=== PATIENT | female | born 1935 | race Caucasian/White ===

== ENCOUNTER 2016-05-22 09:20 | Inpatient (IN) | payer MEDICARE, OTHER ==
--- NOTE | 2016-05-22 10:01 | RAD ---
HISTORY: Neurological changes, stroke like symptoms COMPARISONS: None TECHNIQUE: Multiple contiguous axial CT scans were obtained of the head without intravenous contrast. FINDINGS: HEMORRHAGE/INFARCT: There is no hemorrhage or acute infarct. MASSES/SHIFT: There is no mass or shift. EXTRA-AXIAL SPACES: There are no extra-axial fluid collections. SULCI AND VENTRICLES: The sulci and ventricles are normal in size and position for the patient's stated age. CEREBRUM: There are no focal parenchymal abnormalities. BRAINSTEM: There are no focal parenchymal abnormalities. CEREBELLUM: There are no focal parenchymal abnormalities. VESSELS: The vessels are grossly normal. PARANASAL SINUSES: The paranasal sinuses are clear. ORBITS: The orbits are unremarkable. BONES AND SOFT TISSUE: No bone or soft tissue abnormalities are noted. OTHER: None IMPRESSION: NO ACUTE INTRACRANIAL PATHOLOGY.
[2016-05-22 10:02] LABS: Add Diff/Slide Review? Slide Review Added; Comments Flag Yes; Hematocrit 36 % (35-47); Hemoglobin 11.2 g/dl (12.0-16.0); Mean Corpuscular HGB Conc 31 g/dl (31-36); Mean Corpuscular Hemoglobin 24 pg (27-31); Mean Corpuscular Volume 77 fL (80-97); Mean Platelet Volume 7 um3 (7.4-10.4); Red Blood Count 4.63 10^6/ul (4.0-5.4); Red Cell Distribution Width 23 % (10.5-15); White Blood Count 9.8 10^3/ul (3.5-10.8)
[2016-05-22] MEDS ORDERED: Aspirin SUPP* 300 MG PR ONE (10:16)
[2016-05-22 10:23] LABS: Albumin 3.8 g/dL (3.2-5.2); BUN/Creatinine Ratio 29.2 (8-20); Calcium 9.4 mg/dL (8.6-10.3); EGFR African American 78.3 (>60); EGFR Non-African American 60.9 (>60); Globulin 3.2 g/dL (2-4); HDL Cholesterol 43.2 mg/dL; Potassium 3.9 mmol/L (3.5-5.0); Total Bilirubin 0.6 mg/dL (0.2-1.0)
--- NOTE | 2016-05-22 10:47 | RAD ---
HISTORY: Left-sided weakness COMPARISONS: September 03, 2002 VIEWS:1: Single frontal portable view of the chest at 10:30 AM FINDINGS: LINES AND TUBES: None. CARDIOMEDIASTINAL SILHOUETTE: The cardiac silhouette is enlarged. The cardiomediastinal silhouette is otherwise normal for portable technique. PLEURA: There are small bilateral pleural effusions LUNG PARENCHYMA: There is patchy alveolar opacification lung bases bilaterally. There is a diffuse reticular pattern. There is hyperinflation. ABDOMEN: The upper abdomen is clear. There is no subphrenic gas. BONES AND SOFT TISSUES: No bone or soft tissue abnormalities are noted. IMPRESSION: 1. PULMONARY INTERSTITIAL EDEMA WITH SMALL BILATERAL PLEURAL EFFUSIONS. 2. BIBASILAR ATELECTASIS VERSUS CONSOLIDATION.
--- NOTE | 2016-05-22 10:55 | ED ---
Carlos Wasserman Adam, scribed for Lucius Morris MD on 05/22/16 at 0935 . Neurological HPI - HPI Summary HPI Summary: Pt is an 80 year old female presenting with left-sided weakness. She states that she woke up this morning at 07:00 and fell 3 times. She presents with left- sided facial droop and slurred speech. She seems to have some weakness in her left extremities compared to the right. - History of Current Complaint Chief Complaint: EDSyncope Stated Complaint: STROKE LIKE SYMPTOMS Hx Obtained From: Patient Onset/Duration: Gradual Onset, Started hours ago, Still Present Timing: Constant Onset Severity: Moderate Current Severity: Moderate Neurological Deficit Location: Facial, LUE, LLE Character: Weak - Left side, Impaired Speech Aggravating: Nothing Alleviating: Nothing Associated Signs and Symptoms: Positive: Unsteady Gait, Shortness of Breath - Allergy/Home Medications Allergies/Adverse Reactions: Allergies Allergy/AdvReac Type Severity Reaction Status Date / Time No Known Allergies Allergy Verified 05/22/16 10:16 PMH/Surg Hx/FS Hx/Imm Hx Musculoskeletal History: Reports: Hx Osteoporosis Denies: Hx Rheumatoid Arthritis - Cancer History Hx Chemotherapy: No Hx Radiation Therapy: No - Surgical History Surgery Procedure, Year, and Place: Hysterectomy Infectious Disease History: Denies: Traveled Outside the [place] in Last 30 Days - Family History Known Family History: Positive: Other - Osteoporosis (sister) - Social History Occupation: Retired Lives: Alone Review of Systems Negative: Fever Positive: Shortness Of Breath Neurological: Other - Left side facial droop Positive: Weakness - Left side, Slurred Speech All Other Systems Reviewed And Are Negative: Yes Physical Exam - Summary Physical Exam Summary: VITAL SIGNS: Reviewed. GENERAL: Patient is a well developed and nourished female with a facial droo. and she is lying comfortable in the stretcher. Patient is not in any acute respiratory distress. HEAD AND FACE: No signs of trauma. No ecchymosis, hematomas or skull depressions. EYES: PERRLA, EOMI x 2 EARS: Hearing grossly intact. MOUTH: Oropharynx within normal limits. NECK: Supple, trachea is midline, no adenopathy, no JVD, no carotid bruit CHEST: Symmetric, no tenderness at palpation LUNGS: Clear to auscultation bilaterally. No wheezing or crackles. CVS: irregular rate and rhythm, S1 and S2 present, no murmurs or gallops appreciated. ABDOMEN: Soft, non-tender. No signs of distention. No rebound no guarding, and no masses palpated. Bowel sounds are normal. EXTREMITIES: FROM in all major joints, no edema, no cyanosis or clubbing. NEURO: Alert and oriented x 3. No acute neurological deficits. Speech is normal and follows commands. NIH score 3. SKIN: Dry and warm Triage Information Reviewed: Yes Vital Signs On Initial Exam: Initial Vitals Temp Pulse Resp BP Pulse Ox 98.1 F 84 20 127/70 96 05/22/16 09:22 05/22/16 09:22 05/22/16 09:22 05/22/16 09:22 05/22/16 09:22 Vital Signs Reviewed: Yes Diagnostics - Vital Signs Vital Signs Temp Pulse Resp BP Pulse Ox 05/22/16 09:22 98.1 F 84 20 127/70 96 - Laboratory Lab Results: Lab Results 05/22/16 05/22/16 Range/Units 09:44 09:44 WBC 9.8 (3.5-10.8) 10^3/ul RBC 4.63 (4.0-5.4) 10^6/ul Hgb 11.2 L (12.0-16.0) g/dl Hct 36 (35-47) % MCV 77 L (80-97) fL MCH 24 L (27-31) pg MCHC 31 (31-36) g/dl RDW 23 H (10.5-15) % Plt Count 255 (150-450) 10^3/ul MPV 7 L (7.4-10.4) um3 Neut % (Auto) 83.0 (38-83) % Lymph % (Auto) 7.8 L (25-47) % [place] % (Auto) 6.6 (1-9) % Eos % (Auto) 0.8 (0-6) % Baso % (Auto) 1.8 (0-2) % Absolute Neuts (auto) 8.1 H (1.5-7.7) 10^3/ul Absolute Lymphs (auto) 0.8 L (1.0-4.8) 10^3/ul Absolute Monos (auto) 0.6 (0-0.8) 10^3/ul Absolute Eos (auto) 0.1 (0-0.6) 10^3/ul Absolute Basos (auto) 0.2 (0-0.2) 10^3/ul Absolute Nucleated RBC 0 10^3/ul Nucleated RBC % 0 INR (Anticoag Therapy) 1.06 (0.89-1.11) APTT 25.4 L (26.0-36.3) seconds Result Diagrams: 05/22/16 09:44 05/22/16 09:44 Lab Statement: Any lab studies that have been ordered have been reviewed, and results considered in the medical decision making process. - CT BRAIN CT Interpretation Completed By: Radiologist - IMPRESSION: NO ACUTE INTRACRANIAL PATHOLOGY. - EKG 09:37 Cardiac Rate: NL - 80 BPM EKG Rhythm: Atrial Fibrillation EKG Interpretation: No ST elevations - Additional Comments Diagnostic Additional Comments: Troponin I - 0.00 NIH Scale - NIH Scale Level of Consciousness: Alert/Keenly Responsive Ask Patient the Month and His/Her Age: Both Correct Ask Pt to Open/Close Eyes and Balloon Artist/Release Non-Paretic Hand: Both Correctly Best Gaze (Only Horizontal Eye Movement): Normal Visual Field Testing: No Visual Loss Facial Paresis-Pt to Smile & Close Eyes or Grimace Symmetry: Minor Paralysis Motor Function - Right Arm: No Drift-Holds 10 Seconds Motor Function - Left Arm: No Drift-Holds 10 Seconds Motor Function - Right Leg: No Drift-Holds 10 Seconds Motor Function - Left Leg: No Drift-Holds 10 Seconds Limb Ataxia-Must be out of Proportion to Weakness Present: Absent Sensory (Use Pinprick to Test Arms/Legs/Trunk/Face): Normal Best Language (Describe Picture, Name Items): Some Loss Dysarthria (Read Several Words): Slurs Some Words Extinction and Inattention: No Abnormality Total Score: 3 Course/Dx - Course Assessment/Plan: Pt is an 80 year old female presenting with left-sided weakness. She states that she woke up this morning at 07:00 and fell 3 times. She presents with left-sided facial droop and slurred speech. She seems to have some weakness in her left extremities compared to the right. Patient last time she was in her usual state of mind was last night when she went to sleep. This morning she woke up with symptoms at about 7 AM. She has Hx of A. Fib not in blood thinners. Blood work shows a Hgb 11.2 , Glucose 107. Head CT IMPRESSION : NO ACUTE INTRACRANIAL PATHOLOGY. I discussed the case with Dr. Thakkar and he recommends and Brain MRI w/o contrast. ASA and admit to the hospitalist. MRI results will be follow up By Dr. Thakkar and Dr. Langley. She is hemodynamically stable and she is A+O x 3. I discuss my physical exam, findings and test results with Dr. Langley from the hospitalist services and she agrees to admit patient to his services. Patient is hemodynamically stable alert and oriented x 3. - Differential Dx Differential Diagnoses Neuro: Positive: Cerebrovascular Accident, Seizure Disorder, Transient Ischemic Attack - Diagnoses Provider Diagnoses: Left side weakness r/o CVA Discharge - Discharge Plan Condition: Stable Disposition: ADMITTED TO [facility] The documentation as recorded by the Carlos caraballo Adam accurately reflects the service I personally performed and the decisions made by me, Lucius Morris MD.
[2016-05-22] MEDS ORDERED: traMADol TAB* 50 MG PO PRN (11:44)
[2016-05-22] MEDS ORDERED: NS 0.9% 1000 ML* 1,000 ML IV SCH (11:45)
--- NOTE | 2016-05-22 12:15 | RAD ---
HISTORY: Left-sided weakness COMPARISONS: Head CT dated May 22, 2016 TECHNIQUE: The following sequences were obtained of the head: Sagittal T1-weighted images, axial T2-weighted images, axial FLAIR images, axial susceptibility weighted images, axial T1-weighted images. Additionally, axial diffusion-weighted images were obtained with calculated apparent diffusion coefficients. FINDINGS: HEMORRHAGE/INFARCT: There is no hemorrhage or acute infarct. MASSES/SHIFT: There is no mass or shift. EXTRA-AXIAL SPACES/MENINGES: There are no extra-axial fluid collections. SULCI AND VENTRICLES: The sulci and ventricles are normal in size and position for the patient's stated age. CEREBRUM: There are multiple scattered small foci of elevated T2/FLAIR signal within the periventricular and subcortical white matter. BRAINSTEM: There are no focal parenchymal abnormalities. CEREBELLUM: There are no focal parenchymal abnormalities. The cerebellar tonsils are normal in size and position. SELLA: The sella is normal. PINEAL: The pineal region is clear. CP ANGLE/TEMPORAL BONES: The labyrinthine structures are grossly normal. VESSELS: Normal flow-voids are noted within the visualized vertebral vasculature. DIFFUSION ABNORMALITIES: There are no diffusion abnormalities. PARANASAL SINUSES/MASTOIDS: The paranasal sinuses are clear. ORBITS: The orbits are unremarkable. BONES AND SOFT TISSUE: No bone or soft tissue abnormalities are noted. OTHER: None IMPRESSION: 1. THERE ARE MULTIPLE FOCI OF ELEVATED T2/FLAIR SIGNAL WITHIN THE PERIVENTRICULAR AND SUBCORTICAL WHITE MATTER. WHILE THESE FINDINGS ARE NONSPECIFIC, THEY CAN BE SEEN IN ASSOCIATION WITH MIGRAINE HEADACHE, THE SEQUELA OF PREVIOUS INFECTION OR INFLAMMATION, AND CHRONIC SMALL VESSEL ISCHEMIA. DEMYELINATING DISEASE IS ALSO WITHIN THE DIFFERENTIAL, BUT IS CONSIDERED LESS LIKELY IN THE ABSENCE OF THE APPROPRIATE CLINICAL PRESENTATION. 2. NO RESTRICTED DIFFUSION TO SUGGEST ACUTE INFARCT
[2016-05-22] MEDS: Ferrous Sulfate TAB* 325 MG PO SCH ×2 (13:53→20:55)
[2016-05-22] MEDS: Heparin VIAL(*) 5000 UNITS/ML VIAL (FIVE THOUSAND) SUBCUT SCH ×2 (13:53→20:55)
[2016-05-22] MEDS: Atorvastatin* 10 MG TAB PO SCH (16:28)
--- NOTE | 2016-05-22 20:42 | HP ---
HOSPITAL MEDICINE HISTORY AND PHYSICAL: DATE OF ADMISSION: 05/22/16 PRIMARY CARE PHYSICIAN: Dr. Mitchell. ATTENDING PHYSICIAN: Dr. Lewis Langley *(dictation provided by Keturah Arango NP). CHIEF COMPLAINT: Left-sided weakness and fall. HISTORY OF PRESENT ILLNESS: Ms. Jonas is an 80-year-old female with a past medical history of diagnosis of atrial fibrillation in November 2015. She was started on Xarelto, but then subsequently developed anemia with a hemoglobin of 7.5 Her Xarelto was held and she went on for an upper endoscopy with Dr. Camacho in March of 2016, which failed to show any clear evidence or source of bleeding. It was suspected that likely she had a lower GI bleed, but then colonoscopy was not recommended giving her frail status. In addition to this, she has a diagnosis of hypertension, hyperlipidemia, GERD, and Palafox's esophagus. The patient states she was at home yesterday and she had no issues, it was a beautiful day and she enjoyed being outside somewhat. She was eating and drinking normally. No fevers, no chills. No chest pain, no shortness of breath. No nausea, vomiting, or diarrhea. This morning when she awoke, she immediately knew that something was wrong. She had 3 falls in her attempts to try to take her dog outside for her morning walk. She called her cousin, who came over and noted that she had a left-sided facial droop. She suspected that perhaps she was having a stroke at that point and therefore called EMS to bring her to the hospital. She does not have any clear sense of why she fell. She did not note any left-sided weakness herself. She did appreciate a little bit of slurred speech. She is not complaining of any pain status post these falls. In the emergency room, Ms. Jonas went on for CT of the brain, which showed no acute abnormality. She had lab values, which were remarkable only for an essentially normal hemoglobin of 11.2, our last check back in February had it down to 9.6. Her vitals are stable. Blood pressure is running approximately 129/56. She continues to have left-sided facial droop and very mild left-sided weakness and slurred speech. PAST MEDICAL HISTORY: 1. Atrial fibrillation, off Xarelto due to GI bleed and anemia. 2. History of GI bleed, suspected lower, February 2016. 3. Palafox's esophagus. 4. Hypertension. 5. GERD. 6. Hyperlipidemia. MEDICATIONS: As outpatient are: 1. Diltiazem ER 360 mg p.o. daily. 2. Furosemide 20 mg p.o. daily. 3. Pravastatin 10 mg p.o. daily. 4. Atenolol 50 mg p.o. daily. 5. Ferrous sulfate 325 mg p.o. t.i.d. 6. Omeprazole 20 mg p.o. daily. 7. Tramadol 50 mg p.o. q.6 hours p.r.n. ALLERGIES: No known drug allergies. FAMILY HISTORY: Reviewed and noncontributory. SOCIAL HISTORY: No report of alcohol, tobacco, or drug use. The patient lives alone. She states her daughter is the healthcare proxy and that paperwork was filled out at the bedside today. REVIEW OF SYSTEMS: Constitutional: No fevers, no chills, no unintended weight loss. Cardiac: No chest pain, no edema. Respiratory: No cough, hemoptysis, or shortness of breath. GI: No nausea, vomiting, diarrhea, abdominal pain. No dark tarry stool. : No gross hematuria, dysuria. Neuro: Positive for slurred speech and left-sided facial droop. The patient does not appreciate any other weakness. Eyes: No visual complaints, no headaches, no double vision. ENT: No dysphagia. Musculoskeletal: No arthralgias, myalgias. Skin: No rashes, lesions. Psych: No depression, anxiety. PHYSICAL EXAMINATION GENERAL: Ms. Jonas is lying in the bed. She is in no acute distress. VITAL SIGNS: Temperature 98.1, heart rate 75, respiratory rate 23, O2 saturation 98% on room air, blood pressure 129/56. LUNGS: Clear to auscultation bilaterally with no accessory muscle use and good aeration. HEART: S1, S2. No murmur, rub, or gallop and regular. ABDOMEN: Soft and nontender with bowel sounds positive x4. EXTREMITIES: No cyanosis or edema. NEURO: She is alert and oriented x3. She has a very mild pronator drift on the left, though she is not able to lift well at the shoulder joint due to pain with recent collar bone fracture. She has about +4 to 5 strength on the lower extremities with weakness noted on the left, which is mild. She has a left- sided facial droop. She has mild slurred speech. Her pupils are equal and reactive. Extraocular movements are intact. SKIN: Intact. DIAGNOSTIC STUDIES/LAB DATA: Sodium 137, potassium 3.9, chloride 105, serum bicarbonate 25, BUN 26, creatinine 0.89, glucose 107, lactic acid 1.3. Troponin 0.00. Lipids: Triglycerides 54, cholesterol 141, LDL 87, HDL 43.2. WBC 9.8, hemoglobin 11.2, hematocrit 36, platelet count 255. INR 1.06. CT brain shows no acute intracranial pathology. Chest x-ray shows pulmonary interstitial edema with small bilateral pleural effusions, bibasilar atelectasis versus consolidation. Brain MRI has now been read as follows: "There are multiple foci of elevated T2 /FLAIR signal within the periventricular and subcortical white matter, while these findings are nonspecific, they can be seen in association with migraine headache as a sequelae of previous infection or inflammation and chronic small- vessel ischemia. Demyelinating disease is also within the differential, but it is considered less likely in the absence of the appropriate clinical presentation. No restrictive diffusion to suggest acute infarct." EKG shows atrial fibrillation with a heart rate of 80. ASSESSMENT AND PLAN: Ms. Jonas is an 80-year-old female with past medical history of atrial fibrillation, now off Xarelto secondary to suspected lower gastrointestinal bleed with anemia and hemoglobin of 7.5 earlier this year as well as hypertension, hyperlipidemia, who presents today to the hospital with concern for multiple falls, left-sided weakness, and left-sided facial droop with slurred speech and concern for a cerebrovascular accident. Our plans are for observation in the hospital for the followin. Left-sided weakness with slurred speech: Again, I have a high suspicion for cerebrovascular accident; however, an MRI of the brain has been obtained and has just now been read. It failed to show any restricted diffusion, but does show these elevated FLAIR signal. Neurology has been consulted and I will look closely for their interpretation of this report and recommendations overall. For now, continue plan of care related to cerebrovascular accident. The patient has had an echocardiogram within the past week at Dr. Acosta's office; I am requesting those records. She has also reportedly had a carotid ultrasound late last year; I am requesting those records from [place]. The patient has had an aspirin in the emergency room. Her lipid profile is appropriate. I will continue her low-dose statin. Her blood pressure is a little on the lower side. I had plan to give her intravenous fluids but based on her pulmonary edema noted on her chest x-ray, I think it is prudent to hold off on those for now. I am also going to continue her Lasix, but I will decrease her atenolol in an effort to improve blood pressure and promote brain perfusion. She will be monitored on telemetry unit and she will have neuro checks, PT and OT, and ST will be evaluating. If the patient is determined to have stroke, it is likely related to atrial fibrillation; however, stroke diagnosis is certainly in question at this point. The patient will need consideration for possible colonoscopy before any initiation of anticoagulation given her recent bleed. I think at this point that the risks of anticoagulation outweigh the benefits, but we will await input from Dr. Thakkar and we will also consult Gastroenterology. 2. Hypertension: Continue lower dose atenolol. Plan to hold Cardizem in the short term given her blood pressure is a little on the lower side in the setting of a possible acute stroke. Also, we will continue furosemide. 3. Pulmonary edema: This was noted on chest x-ray; however, the patient is not hypoxic, breathing easily on room air. Plan to continue furosemide. 4. DVT prophylaxis: Heparin subcu. 5. Disposition: To telemetry floor. 6. Code status is DNR/DNI and the MOLST form was completed with her and the family. TIME SPENT: Approximately 75 minutes was spent on the admission of this patient , more than half time spent with her and her family at the bedside performing the physical examination and reviewing the plan of care. KETURAH ARANGO NP CC: Dr. Mitchell* [id number]/[facility] #: [id number] JESSICA
--- NOTE | 2016-05-22 21:23 | CONS ---
CONSULTATION REPORT: DATE OF CONSULT: 05/22/16 PATIENT OF: Keturah Arango NP HISTORY OF PRESENT ILLNESS: This is an 80-year-old right-handed woman who had a left-sided weakness upon waking up. She has had no prior stroke or TIA. When she woke up at 7, she fell several times and her left side felt weak to her. She had slight slurred speech. Things have improved according to her family and her over the course of the morning, but still she has symptoms. PAST MEDICAL HISTORY: She has a history of osteoporosis. She is status post hysterectomy, but no other surgeries. She has hyperlipidemia, hypertension. She is also status post a hysterectomy. She has had atrial fibrillation and has had been on Xarelto with significant GI bleeding without the source noted. SOCIAL HISTORY: She is a former smoker quitting in 2000. REVIEW OF SYSTEMS: Negative in all 14 spheres other than the HPI. PHYSICAL EXAM: Temperature 98, pulse 60, respirations 20, blood pressure 120/ 69. She is alert and oriented with no aphasia and fluent speech. I did not detect any slurred speech. She did have a left facial droop, which is new. Rest of cranial nerves II through XII were intact. She had mild pronator drift and 5-/5 strength in the left arm and leg. Strength and tone on the right were normal with strength being 5/5. Reflexes 1 and equal. Toes were downgoing. Chest: Clear. Cardiovascular: Irregular rate and rhythm. Abdomen: Soft with positive bowel sounds. DIAGNOSTIC STUDIES/LAB DATA: I reviewed her MRI scan, which showed some small vessel ischemic disease. There was a possible air in the right anterior insula. Labs include white count of 9.8, hematocrit 36, platelets 255. INR 1.06. PTT 25.4. LDL is 87. Normal CMP except for BUN of 26. 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 It would be presumed to be due to a small embolic stroke although it is possible that this could be a hypertensive small lacunar stroke. It is hard to be sure. It is possible the abnormality in her anterior insula is related to her symptoms. I had called Dr. Butcher when I had seen this to review the MRI scan with him. In any event, after a couple days' time, it would make sense to repeat a CAT scan and then go on anticoagulation unless the risks of falling and GI bleeding are too high that it would preclude this, but the stroke would be a strong indication to treat her atrial fibrillation. She had an echocardiogram done a couple weeks ago with bubble study that is being obtained by the nursing. I have spoken to Keturah Arango NP, about this case and she should be on aspirin until she goes on her anticoagulation. [id number]/[facility] #: [id number] MTDBertha
--- NOTE | 2016-05-23 00:08 | CONS ---
GASTROENTEROLOGY CONSULTATION DATE OF CONSULT: 05/22/16 CONSULTING PHYSICIANS: Milton Mitchell; Odette Ford DO. REASON FOR CONSULTATION: Right hemispheric neurologic signs developing today in a woman with history of atrial fibrillation and iron deficiency anemia. HISTORY: This 80-year-old woman today fell as she was getting up to let her dog out. It happened a second time and then a third time outside. She called an ambulance and was brought to the ER where she had a left facial droop and left arm weakness. She is able to bear weight. She was diagnosed with atrial fibrillation last fall and after hospitalization at [facility] was placed on Xarelto. She fairly rapidly developed iron deficiency anemia pattern with an MCV down in the 70s. She was taken off Xarelto. 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 She was on omeprazole 20 and not on any anticoagulant at that time. She was taking 3 iron sulfate tablets and was completely impacted with the rectum full of black stool. 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 Currently, she is on a general diet and says her appetite is okay with no change in her weight. Taking now 1 iron tablet a day. her bowels are fine and she does not need any laxatives. Her CBC today on admission was substantially better with a hemoglobin of 11.2, hematocrit 36, and MCV 77. BUN 26, creatinine 0.89. LFTs normal. Albumin 3.8. PAST MEDICAL HISTORY: 1. Atrial fibrillation - fall 2015. 2. History of poor balance and falls - she fell and broke her collar bone last year. 3. Status post hysterectomy. 4. Hiatal hernia and GERD - on omeprazole 20 mg over 10 years. 5. Hypothyroidism. SOCIAL HISTORY: She lives alone with her daughter living about a [place] drive away. She has a dog she is devoted to. REVIEW OF SYSTEMS: No history of inflammatory arthritis, TB, hemoptysis, hepatitis, jaundice, WI, overt palpitations, syncope, renal stones, hip fracture or emergency room visits in the last several years. She was actually in the emergency room in 2004 for a fall. EXAM: She is a slender elderly woman, alert, oriented with a left facial droop. She has left arm weakness. She has no adenopathy. The lungs are clear and heart sounds are irregular, but crisp. Rest of the pelvic exam is deferred. The abdomen is flat with normal bowel sounds, quite soft, and unremarkable. Perianal inspection is normal. Rectal reveals soft, brown stool submitted for Hemoccult. A specimen earlier in the day was negative. Extremities showed no edema. LABORATORY DATA: Today 9:44 a.m., hemoglobin 11.2, hematocrit 36, MCV 77; up from hemoglobin 9.6 and MCV 73 on 03/08/16. LFTs are normal. Albumin 3.8. Vitamin B12 in February was 535. SPEECH [facility] THERAPIST IMAGING: CT and MRI both show multifocal low-grade changes compatible with ischemia, but no major hemorrhage. IMPRESSION: A woman with an acute left hemiplegia in the background of atrial fibrillation. She will need to be anticoagulated and that decision is more comfortable as she is heme negative today. She had upper endoscopy a couple of months ago. The information from a colonoscopy would be of interest and logical , but her ability to take the prep is certainly in question now with the acute presentation and almost regardless of the findings, no action will be taken as one would not wish to interrupt the anticoagulation. Thus, would forgo a colonoscopy at the moment and just track her Hemoccults closely and replete iron as needed. Down the road, a colonoscopy might be elected, but preparation for it will be difficult. She had resisted having any workup at all through the latter half of 2015 and with her history of falls and living alone, the barriers to safe performance of this remain. [id number]/[facility] #: [id number] MTDD
[2016-05-23] MEDS: Heparin VIAL(*) 5000 UNITS/ML VIAL (FIVE THOUSAND) SUBCUT SCH ×3 (05:31→21:11)
[2016-05-23] MEDS: Furosemide TAB* 20 MG PO SCH (05:31)
[2016-05-23 06:10] LABS: Urine Bacteria Absent (Absent); Urine Bilirubin Negative (Negative); Urine Glucose Negative (Negative); Urine Nitrite Negative (Negative)
[2016-05-23] MEDS: Ferrous Sulfate TAB* 325 MG PO SCH ×3 (08:07→21:11)
[2016-05-23] MEDS: Aspirin TAB* 325 MG PO SCH (08:07)
[2016-05-23] MEDS: Omeprazole CAP* 20 MG PO SCH (08:07)
[2016-05-23] MEDS: Atenolol TAB* 25 MG PO SCH (08:07)
--- NOTE | 2016-05-23 08:51 | PN ---
Subjective Date of Service: 05/23/16 Interval History: Patient reports she is much better today reporting her left sided weakness is almost resolved. Denies MELISSA or vision changes. Denies numbness/tingling/weakness Discussed anticoagulation with pt and daughter and they are leaning towards coumadin. No falls at home prior to this acute episode. Objective Active Medications: Aspirin (Aspirin Tab*) 325 mg PO DAILY [facility] Last Admin: 05/23/16 08:07 Dose: 325 mg Atenolol (Tenormin Tab*) 25 mg PO DAILY [facility] Last Admin: 05/23/16 08:07 Dose: 25 mg Atorvastatin Calcium (Lipitor*) 10 mg PO 1700 [facility] Last Admin: 05/22/16 16:28 Dose: 10 mg Ferrous Sulfate (Ferrous Sulfate Tab*) 325 mg PO TID [facility] Last Admin: 05/23/16 08:07 Dose: 325 mg Furosemide (Lasix Tab*) 20 mg PO 0600 [facility] Last Admin: 05/23/16 05:31 Dose: 20 mg Heparin Sodium (Porcine) (Heparin Vial(*)) 5,000 units SUBCUT Q8HR [facility] Last Admin: 05/23/16 05:31 Dose: 5,000 units Omeprazole (Prilosec Cap*) 20 mg PO DAILY [facility] Last Admin: 05/23/16 08:07 Dose: 20 mg Tramadol HCl (Ultram*) 50 mg PO Q6HR PRN PRN Reason: PAIN Last Admin: 05/23/16 08:07 Dose: 50 mg Vital Signs 05/22/16 05/22/16 05/22/16 19:42 20:00 23:57 Temperature 97.5 F 98.6 F Pulse Rate 109 103 Respiratory 17 17 28 Rate Blood Pressure 127/57 125/56 (mmHg) O2 Sat by Pulse 90 90 89 Oximetry 05/23/16 05/23/16 05/23/16 00:17 03:36 07:59 Temperature 98.2 F 97.7 F Pulse Rate 86 98 71 Respiratory 27 20 18 Rate Blood Pressure 122/57 128/54 (mmHg) O2 Sat by Pulse 92 91 94 Oximetry 05/23/16 08:07 Temperature Pulse Rate Respiratory 20 Rate Blood Pressure (mmHg) O2 Sat by Pulse Oximetry Oxygen Devices in Use Now: Nasal Cannula - 2L NC Appearance: 80 yo female sitting on the side of her bed in NAD A+O x3. Daughter at bedside Eyes: No Scleral Icterus, PERRLA Ears/Nose/Mouth/Throat: NL Teeth, Lips, Gums, Mucous Membranes Moist Neck: NL Appearance and Movements; NL JVP Respiratory: Symmetrical Chest Expansion and Respiratory Effort, Clear to Auscultation Cardiovascular: NL Sounds; No Murmurs; No JVD, RRR, - - 1+ LE edema b/l Abdominal: NL Sounds; No Tenderness; No Distention Extremities: No Clubbing, Cyanosis Skin: No Rash or Ulcers, No Nodules or Sclerosis Neurological: Alert and Oriented x 3, NL Sensation, NL Muscle Strength and Tone Lines/Tubes/Other Access: Clean, Dry and Intact Peripheral IV Nutrition: Taking PO's Result Diagrams: 05/22/16 09:44 05/22/16 09:44 Additional Lab and Data: Lab Results 05/22/16 05/22/16 Range/Units 09:44 09:44 WBC 9.8 (3.5-10.8) 10^3/ul RBC 4.63 (4.0-5.4) 10^6/ul Hgb 11.2 L (12.0-16.0) g/dl Hct 36 (35-47) % MCV 77 L (80-97) fL MCH 24 L (27-31) pg MCHC 31 (31-36) g/dl RDW 23 H (10.5-15) % Plt Count 255 (150-450) 10^3/ul MPV 7 L (7.4-10.4) um3 Neut % (Auto) 83.0 (38-83) % Lymph % (Auto) 7.8 L (25-47) % [place] % (Auto) 6.6 (1-9) % Eos % (Auto) 0.8 (0-6) % Baso % (Auto) 1.8 (0-2) % Absolute Neuts (auto) 8.1 H (1.5-7.7) 10^3/ul Absolute Lymphs (auto) 0.8 L (1.0-4.8) 10^3/ul Absolute Monos (auto) 0.6 (0-0.8) 10^3/ul Absolute Eos (auto) 0.1 (0-0.6) 10^3/ul Absolute Basos (auto) 0.2 (0-0.2) 10^3/ul Absolute Nucleated RBC 0 10^3/ul Nucleated RBC % 0 INR (Anticoag Therapy) 1.06 (0.89-1.11) APTT 25.4 L (26.0-36.3) seconds Assess/Plan/Problems-Billing Assessment: 80 yo female with hx of afib dx in November 2015, she was started on xarelto at that time but subsequently developed anemia with Hgb 7.5 and her xarelto was discontinued, she underwent endoscopy which failed to show any clear evidence of bleed, it was suspected she had a lower GI bleed but no colonoscopy was recommended due to her frail state, now returns with left-sided weakness and fall found to have a CVA. - Patient Problems (1) CVA (cerebral vascular accident) Comment: - acute CVA - Appreciate Neuro consult, Dr. Thakkar. Presented with left hemiparesis, greatly improved over the past 24 hours. MRI showing acute CVA, Possible small cardioembolic CVA in the setting of afib or possible lacunar stroke. Recommends repeat CT tomorrow and if negative for bleed start anticoagulation. - Per GI ok to start anticog from GI standpoint with tracking her hemoccults. - continue statin, ASA - PT/OT - reassess ambulation and stability tomorrow. May need subacute (2) History of GI bleed Comment: 2016 -started on xarelto at that time but subsequently developed anemia with Hgb 7.5 and her xarelto was discontinued, she underwent endoscopy which failed to show any clear evidence of bleed, it was suspected she had a lower GI bleed but no colonoscopy was recommended due to her frail state - heme negative x2 (3) HTN (hypertension) Comment: normotensive on home atenolol (4) GERD (gastroesophageal reflux disease) Comment: asymptomatic. continue PPI (5) DVT prophylaxis Comment: HSQ (6) Full code status Status and Disposition: inpatient with CVA.
[2016-05-23] MEDS ORDERED: Atenolol TAB* 50 MG PO SCH (09:00)
[2016-05-23] MEDS: Atorvastatin* 10 MG TAB PO SCH (16:46)
[2016-05-24] MEDS: Furosemide TAB* 20 MG PO SCH (05:51)
[2016-05-24] MEDS: Heparin VIAL(*) 5000 UNITS/ML VIAL (FIVE THOUSAND) SUBCUT SCH ×2 (05:51→12:58)
[2016-05-24 06:25] LABS: Hematocrit 34 % (35-47); Hemoglobin 10.8 g/dl (12.0-16.0); Mean Corpuscular HGB Conc 32 g/dl (31-36); Mean Corpuscular Hemoglobin 25 pg (27-31); Mean Corpuscular Volume 78 fL (80-97); Mean Platelet Volume 9 um3 (7.4-10.4); Red Blood Count 4.38 10^6/ul (4.0-5.4); Red Cell Distribution Width 22 % (10.5-15)
[2016-05-24 06:30] LABS: Comments Flag Yes
[2016-05-24 06:40] LABS: BUN/Creatinine Ratio 27.8 (8-20); Calcium 8.9 mg/dL (8.6-10.3); EGFR African American 89.8 (>60); EGFR Non-African American 69.8 (>60); Potassium 3.7 mmol/L (3.5-5.0)
--- NOTE | 2016-05-24 09:22 | RAD ---
INDICATION: CVA COMPARISON: CT brain May 22, 2016; MRI brain May 22, 2016 TECHNIQUE: Noncontrast axial source images were acquired from the skull base to the vertex. FINDINGS: Ventricles/sulci: The ventricles and cisterns are normal in size and configuration for age. Brain parenchyma: There is no focal parenchymal finding, evidence of intracranial mass, or intracranial mass effect. Intracranial hemorrhage:None. Extra-axial spaces: There are no abnormal extra axial fluid collections or evidence of extra-axial mass. Calvarium: There is no calvarial fracture or other calvarial abnormality. Scalp: There is no evidence of scalp or extracalvarial soft tissue abnormality. Paranasal sinuses/mastoid: The paranasal sinuses and mastoid air cells are clear. Other: None. IMPRESSION: No acute intracranial findings or interval changes.
[2016-05-24] MEDS: Aspirin TAB* 325 MG PO SCH (10:12)
[2016-05-24] MEDS: Ferrous Sulfate TAB* 325 MG PO SCH ×3 (10:13→20:57)
[2016-05-24] MEDS: Atenolol TAB* 25 MG PO SCH (10:13)
[2016-05-24] MEDS: Omeprazole CAP* 20 MG PO SCH (10:13)
--- NOTE | 2016-05-24 12:43 | PN ---
FOLLOWUP REPORT: DATE OF SERVICE: DATE OF DICTATION: 05/23/16 PATIENT OF: Pati Morin NP HISTORY: Federica feels better and notes no left-sided weakness at this point. No headache or visual changes. No numbness or tingling. MEDICATIONS: Include: 1. Aspirin. 2. Lipitor. 3. Her blood pressure medicines. PHYSICAL EXAMINATION: Temperature 97.2, pulse 89, respirations 17, blood pressure 108/53. She is alert and oriented with normal speech and comprehension. Cranial nerves II through XII are intact. Motor exam revealed normal tone and strength. There was no pronator drift today. Chest: Clear. Cardiovascular: Regular rate and rhythm. Abdomen: Soft with positive bowel sounds. LABORATORY DATA: Her LDL was 87 and she is on a statin. IMPRESSION: Discussed with Federica, her family, and Pati Morin NP, that she has had a small stroke with good clinical resolution at this point. Given her atrial fibrillation, it would make sense to anticoagulate. If her CT scan tomorrow shows no bleeding into an area of stroke, then I would begin at this point. If she had had a larger stroke, I would wait longer, but at this point given her clinical resolution and the lack of evidence of significant area of her brain being affected by ischemia, I would begin the anticoagulation sooner rather than later. I have discussed the pros and cons of this with the family. [id number]/[facility] #: [id number] MTDBertha
[2016-05-24] MEDS ORDERED: Metoprolol Tartrate IV* 1 MG/ML 5 ML VIAL IV ONE ×2 (13:30→21:59)
[2016-05-24] MEDS ORDERED: Diltiazem TAB* 30 MG PO SCH ×2 (14:00→17:00)
[2016-05-24] MEDS ORDERED: Digoxin IV* 0.5 MG/2 ML AMP (0.25 MG/ML) IV SLOW PU ONE (14:05)
--- NOTE | 2016-05-24 14:09 | PN ---
Subjective Date of Service: 05/24/16 Interval History: patient reports she feels better today stating she feels steady on her feet. Denies SOB, palpitations or CP. No dizziness. Denies weakness or tingling. Does reports she has a cough and rhinorrhea stating she thinks she "has a cold". Occasional clear - white sputum production. Denies fever or chills. reports good appetite. Objective Active Medications: Aspirin (Aspirin Tab*) 325 mg PO DAILY [facility] Last Admin: 05/24/16 10:12 Dose: 325 mg Atenolol (Tenormin Tab*) 25 mg PO BID [facility] Atorvastatin Calcium (Lipitor*) 10 mg PO 1700 [facility] Last Admin: 05/23/16 16:46 Dose: 10 mg Ferrous Sulfate (Ferrous Sulfate Tab*) 325 mg PO TID [facility] Last Admin: 05/24/16 12:58 Dose: 325 mg Furosemide (Lasix Tab*) 20 mg PO 0600 [facility] Last Admin: 05/24/16 05:51 Dose: 20 mg Heparin Sodium (Porcine) (Heparin Vial(*)) 5,000 units SUBCUT Q8HR [facility] Last Admin: 05/24/16 12:58 Dose: 5,000 units Omeprazole (Prilosec Cap*) 20 mg PO DAILY [facility] Last Admin: 05/24/16 10:13 Dose: 20 mg Tramadol HCl (Ultram*) 50 mg PO Q6HR PRN PRN Reason: PAIN Last Admin: 05/23/16 08:07 Dose: 50 mg Warfarin Sodium (Coumadin Tab(*)) 5 mg PO DAILY@1700 [facility] PRN Reason: Protocol Vital Signs 05/23/16 05/23/16 05/23/16 15:17 19:18 20:00 Temperature 97.2 F 97.4 F Pulse Rate 89 116 Respiratory 17 19 19 Rate Blood Pressure 108/53 109/60 (mmHg) O2 Sat by Pulse 100 96 96 Oximetry 05/24/16 05/24/16 05/24/16 00:08 04:27 07:49 Temperature 98.1 F 98.5 F 97.7 F Pulse Rate 112 88 113 Respiratory 16 16 18 Rate Blood Pressure 125/84 139/69 131/66 (mmHg) O2 Sat by Pulse 91 91 96 Oximetry 05/24/16 11:44 Temperature 98.0 F Pulse Rate 118 Respiratory 16 Rate Blood Pressure 118/52 (mmHg) O2 Sat by Pulse 97 Oximetry Oxygen Devices in Use Now: Nasal Cannula - 2L NC Appearance: A+O x3 80 yo female sitting up in bed in NAD. Eyes: No Scleral Icterus, PERRLA Ears/Nose/Mouth/Throat: NL Teeth, Lips, Gums, Mucous Membranes Moist Neck: NL Appearance and Movements; NL JVP Respiratory: Symmetrical Chest Expansion and Respiratory Effort, Clear to Auscultation Cardiovascular: No Edema, - - irregulary irregular, tachycardic Abdominal: NL Sounds; No Tenderness; No Distention, No Hepatosplenomegaly Extremities: No Edema, No Clubbing, Cyanosis Skin: No Rash or Ulcers, No Nodules or Sclerosis Neurological: Alert and Oriented x 3, NL Sensation, NL Muscle Strength and Tone Lines/Tubes/Other Access: Clean, Dry and Intact Peripheral IV Nutrition: Taking PO's Result Diagrams: 05/24/16 05:13 05/24/16 05:13 Additional Lab and Data: Lab Results 05/22/16 05/22/16 Range/Units 09:44 09:44 WBC 9.8 (3.5-10.8) 10^3/ul RBC 4.63 (4.0-5.4) 10^6/ul Hgb 11.2 L (12.0-16.0) g/dl Hct 36 (35-47) % MCV 77 L (80-97) fL MCH 24 L (27-31) pg MCHC 31 (31-36) g/dl RDW 23 H (10.5-15) % Plt Count 255 (150-450) 10^3/ul MPV 7 L (7.4-10.4) um3 Neut % (Auto) 83.0 (38-83) % Lymph % (Auto) 7.8 L (25-47) % [place] % (Auto) 6.6 (1-9) % Eos % (Auto) 0.8 (0-6) % Baso % (Auto) 1.8 (0-2) % Absolute Neuts (auto) 8.1 H (1.5-7.7) 10^3/ul Absolute Lymphs (auto) 0.8 L (1.0-4.8) 10^3/ul Absolute Monos (auto) 0.6 (0-0.8) 10^3/ul Absolute Eos (auto) 0.1 (0-0.6) 10^3/ul Absolute Basos (auto) 0.2 (0-0.2) 10^3/ul Absolute Nucleated RBC 0 10^3/ul Nucleated RBC % 0 INR (Anticoag Therapy) 1.06 (0.89-1.11) APTT 25.4 L (26.0-36.3) seconds Assess/Plan/Problems-Billing Assessment: 80 yo female with hx of afib dx in November 2015, she was started on xarelto at that time but subsequently developed anemia with Hgb 7.5 and her xarelto was discontinued, she underwent endoscopy which failed to show any clear evidence of bleed, it was suspected she had a lower GI bleed but no colonoscopy was recommended due to her frail state, now returns with left-sided weakness and fall found to have a CVA. - Patient Problems (1) CVA (cerebral vascular accident) Comment: - acute CVA - Appreciate Neuro consult, Dr. Thakkar. Presented with left hemiparesis, greatly improved over the past 48 hours. MRI showing acute CVA, Possible small cardioembolic CVA in the setting of afib or possible lacunar stroke. Repeat CT today negative for bleeding, ok to start anticoagulation per neuro. DC ASA. Lovenox to coumadin bridge. - Per GI ok to start anticog from GI standpoint with tracking her hemoccults. - continue statin - PT/OT (2) Afib Comment: - uncontrolled today. BB decreased on admssion and cardizem was held 2nd to CVA and allowing for permissive HTN, now HR 110-130's. Pt is asymptomatic. Digoxin given (due to soft Bps) w/o much effect. Plan to start cardizem 30 mg po Q6hr then switch to long acting home dose. Will increase BB back to home dose. (3) CHF (congestive heart failure) Comment: - Chest xray on admission showing "pulmonary interstial edema with bilateral pleural effusions. Bibasilar atelectasis vs consolidation". Suspect this is CHF and not pneumonia. - Recent echo at Dr. Randallitic this past week; obtaining TTE report - repeat chest xray continues to require oxygen - continue lasix (4) History of GI bleed Comment: 2016 -started on xarelto at that time but subsequently developed anemia with Hgb 7.5 and her xarelto was discontinued, she underwent endoscopy which failed to show any clear evidence of bleed, it was suspected she had a lower GI bleed but no colonoscopy was recommended due to her frail state - heme negative x2 (5) HTN (hypertension) Comment: continue atenolol, restart cardizem. (6) GERD (gastroesophageal reflux disease) Comment: asymptomatic. continue PPI (7) DVT prophylaxis Comment: HSQ (8) Full code status Status and Disposition: inpatient with CVA. Plan for patient to go home, daughter plans to move in with her mom.
[2016-05-24] MEDS ORDERED: Digoxin TAB* 0.25 MG PO ONE (14:32)
[2016-05-24] MEDS: Enoxaparin(*) 60 MG/0.6 ML SYR SUBCUT SCH (17:39)
[2016-05-24] MEDS: Warfarin TAB(*) 5 MG PO SCH (17:43)
[2016-05-24] MEDS: Atorvastatin* 10 MG TAB PO SCH (17:44)
[2016-05-24] MEDS: Diltiazem TAB* 30 MG PO SCH (18:06)
[2016-05-24] MEDS ORDERED: Atenolol TAB* 25 MG PO SCH (21:00)
[2016-05-25] MEDS: Diltiazem TAB* 30 MG PO SCH ×2 (00:03→05:38)
[2016-05-25] MEDS: Enoxaparin(*) 60 MG/0.6 ML SYR SUBCUT SCH ×2 (05:35→17:19)
[2016-05-25 05:49] LABS: Hematocrit 37 % (35-47); Hemoglobin 11.6 g/dl (12.0-16.0); Mean Corpuscular HGB Conc 32 g/dl (31-36); Mean Corpuscular Hemoglobin 25 pg (27-31); Mean Corpuscular Volume 77 fL (80-97); Mean Platelet Volume 8 um3 (7.4-10.4); Red Blood Count 4.74 10^6/ul (4.0-5.4); Red Cell Distribution Width 22 % (10.5-15); White Blood Count 9.7 10^3/ul (3.5-10.8)
[2016-05-25 06:09] LABS: BUN/Creatinine Ratio 30.9 (8-20); Calcium 8.9 mg/dL (8.6-10.3); EGFR African American 87.3 (>60); EGFR Non-African American 67.9 (>60)
[2016-05-25] MEDS ORDERED: Diltiazem CD CAP* 240 MG PO ONE (08:27)
[2016-05-25] MEDS: Omeprazole CAP* 20 MG PO SCH (08:58)
[2016-05-25] MEDS: Atenolol TAB* 50 MG PO SCH (08:58)
[2016-05-25] MEDS: Ferrous Sulfate TAB* 325 MG PO SCH ×3 (08:58→20:12)
[2016-05-25] MEDS ORDERED: Aspirin EC Low Dose* 81 MG TAB.EC PO SCH (09:00)
--- NOTE | 2016-05-25 15:19 | RAD ---
HISTORY: Hypoxia COMPARISONS: May 22, 2016 VIEWS: 2: Frontal dual-energy and lateral views of the chest. FINDINGS: CARDIOMEDIASTINAL SILHOUETTE: The cardiomediastinal silhouette is normal. BEST: There is enlargement of the central pulmonary vasculature. PLEURA: There are small bilateral pleural effusions. LUNG PARENCHYMA: There is hyperinflation with flattening of the diaphragm and expansion of the AP diameter of the chest. ABDOMEN: The upper abdomen is clear. There is no subphrenic gas. BONES AND SOFT TISSUES: There is diffuse osteopenia. Degenerative changes are noted of the spine OTHER: None. IMPRESSION: 1. HYPERINFLATION, CONSISTENT WITH COPD. 2. SMALL BILATERAL PLEURAL EFFUSIONS.
[2016-05-25] MEDS ORDERED: Furosemide IV* 10 MG/ML 10 ML VIAL (100 MG) IV ONE (16:20)
--- NOTE | 2016-05-25 16:24 | PN ---
Subjective Date of Service: 05/25/16 Interval History: Patient reports she is feeling better everyday - reports mild left upper arm weakness but states "it is very slight". She has been ambulating around her room independently with out walker or any device. Has an occasional cough, no sputum production. Denies orthopnea or LE edema. Reports good appetite. Objective Active Medications: Atenolol (Tenormin Tab*) 50 mg PO DAILY [facility] Last Admin: 05/25/16 08:58 Dose: 50 mg Atorvastatin Calcium (Lipitor*) 10 mg PO 1700 [facility] Last Admin: 05/24/16 17:44 Dose: 10 mg Diltiazem HCl (Cardizem Cd Cap*) 360 mg PO DAILY [facility] Enoxaparin Sodium (Lovenox(*)) 55 mg SUBCUT Q12H [facility] Last Admin: 05/25/16 05:35 Dose: 55 mg Ferrous Sulfate (Ferrous Sulfate Tab*) 325 mg PO TID [facility] Last Admin: 05/25/16 13:09 Dose: 325 mg Omeprazole (Prilosec Cap*) 20 mg PO DAILY [facility] Last Admin: 05/25/16 08:58 Dose: 20 mg Pharmacy Profile Note (Coumadin Daily Reminder*) 0 note FOLLOW UP 1700 [facility] Last Admin: 05/24/16 17:49 Dose: 1 note Tramadol HCl (Ultram*) 50 mg PO Q6HR PRN PRN Reason: PAIN Last Admin: 05/23/16 08:07 Dose: 50 mg Warfarin Sodium (Coumadin Tab(*)) 5 mg PO DAILY@1700 [facility] PRN Reason: Protocol Last Admin: 05/24/16 17:43 Dose: 5 mg Vital Signs 05/24/16 05/24/16 05/24/16 17:32 17:44 19:11 Temperature 96.4 F Pulse Rate 75 124 Respiratory 24 Rate Blood Pressure 93/39 104/40 110/48 (mmHg) O2 Sat by Pulse 97 94 Oximetry 05/24/16 05/24/16 05/25/16 20:00 20:26 00:06 Temperature 97.9 F Pulse Rate 109 96 Respiratory 18 16 Rate Blood Pressure 118/53 130/61 (mmHg) O2 Sat by Pulse 94 94 Oximetry 05/25/16 05/25/16 05/25/16 04:11 07:47 08:00 Temperature 98.2 F 97.7 F Pulse Rate 109 91 Respiratory 16 16 16 Rate Blood Pressure 126/66 128/51 (mmHg) O2 Sat by Pulse 92 96 96 Oximetry 05/25/16 05/25/16 05/25/16 10:00 11:23 11:55 Temperature 97.6 F Pulse Rate 95 Respiratory 16 Rate Blood Pressure 94/43 116/53 (mmHg) O2 Sat by Pulse 81 97 Oximetry 05/25/16 12:01 Temperature Pulse Rate Respiratory Rate Blood Pressure (mmHg) O2 Sat by Pulse 90 Oximetry Oxygen Devices in Use Now: Nasal Cannula - 2L NC Appearance: elderly female walking around her room A+O x3 in NAD Eyes: No Scleral Icterus, PERRLA Ears/Nose/Mouth/Throat: NL Teeth, Lips, Gums, Mucous Membranes Moist Neck: NL Appearance and Movements; NL JVP Respiratory: Symmetrical Chest Expansion and Respiratory Effort, - - crackles to bases b/l Cardiovascular: NL Sounds; No Murmurs; No JVD, No Edema, - - irregularly irregular Abdominal: NL Sounds; No Tenderness; No Distention Extremities: No Edema, No Clubbing, Cyanosis Skin: No Rash or Ulcers, No Nodules or Sclerosis Neurological: Alert and Oriented x 3, NL Sensation, NL Gait, NL Muscle Strength and Tone Lines/Tubes/Other Access: Clean, Dry and Intact Peripheral IV Nutrition: Taking PO's Result Diagrams: 05/25/16 05:22 05/25/16 05:22 Additional Lab and Data: Lab Results 05/22/16 05/22/16 Range/Units 09:44 09:44 WBC 9.8 (3.5-10.8) 10^3/ul RBC 4.63 (4.0-5.4) 10^6/ul Hgb 11.2 L (12.0-16.0) g/dl Hct 36 (35-47) % MCV 77 L (80-97) fL MCH 24 L (27-31) pg MCHC 31 (31-36) g/dl RDW 23 H (10.5-15) % Plt Count 255 (150-450) 10^3/ul MPV 7 L (7.4-10.4) um3 Neut % (Auto) 83.0 (38-83) % Lymph % (Auto) 7.8 L (25-47) % Pacific % (Auto) 6.6 (1-9) % Eos % (Auto) 0.8 (0-6) % Baso % (Auto) 1.8 (0-2) % Absolute Neuts (auto) 8.1 H (1.5-7.7) 10^3/ul Absolute Lymphs (auto) 0.8 L (1.0-4.8) 10^3/ul Absolute Monos (auto) 0.6 (0-0.8) 10^3/ul Absolute Eos (auto) 0.1 (0-0.6) 10^3/ul Absolute Basos (auto) 0.2 (0-0.2) 10^3/ul Absolute Nucleated RBC 0 10^3/ul Nucleated RBC % 0 INR (Anticoag Therapy) 1.06 (0.89-1.11) APTT 25.4 L (26.0-36.3) seconds Assess/Plan/Problems-Billing Assessment: 80 yo female with hx of afib dx in November 2015, she was started on xarelto at that time but subsequently developed anemia with Hgb 7.5 and her xarelto was discontinued, she underwent endoscopy which failed to show any clear evidence of bleed, it was suspected she had a lower GI bleed but no colonoscopy was recommended due to her frail state, now returns with left-sided weakness and fall found to have a CVA. - Patient Problems (1) CVA (cerebral vascular accident) Comment: - acute CVA - Appreciate Neuro consult, Dr. Thakkar. Presented with left hemiparesis, has greatly improved. MRI showing acute CVA, Possible small cardioembolic CVA in the setting of afib or possible lacunar stroke. Repeat CT negative for bleeding , ok to start anticoagulation per neuro. DC ASA. Lovenox to coumadin bridge. - TTE with bubble done on 05/04/16 showing PFO with LVEF 55-60% - Per GI ok to start anticog from GI standpoint with tracking her hemoccults. - continue statin - PT - doing very well. No OT needs identified (2) Afib Comment: - Better rate control today. Patient back on home medications. - continue lovenox bridge to coumadin. - check INR in am (3) CHF (congestive heart failure) Comment: - Chest xray on admission showing "pulmonary interstial edema with bilateral pleural effusions. Bibasilar atelectasis vs consolidation". Suspect this is CHF and not pneumonia. Patient has increased O2 requirements - give lasix 20 mg IV x1, continue home dose lasix. (4) History of GI bleed Comment: 2016 -started on xarelto at that time but subsequently developed anemia with Hgb 7.5 and her xarelto was discontinued, she underwent endoscopy which failed to show any clear evidence of bleed, it was suspected she had a lower GI bleed but no colonoscopy was recommended due to her frail state - heme negative x2 (5) HTN (hypertension) Comment: continue atenolol, restart cardizem. (6) GERD (gastroesophageal reflux disease) Comment: asymptomatic. continue PPI (7) DVT prophylaxis Comment: HSQ (8) Full code status Status and Disposition: inpatient with CVA. Plan for patient to go home, daughter plans to stay with her for now. patient nor her daughter feels comfortable with the lovenox injections. They are discussing with other family to see if they would be willing (there is a nurse in the family) if not patient will require hospitalization until she is therapeutic.
[2016-05-25] MEDS: Warfarin TAB(*) 5 MG PO SCH (17:22)
[2016-05-25] MEDS: Atorvastatin* 10 MG TAB PO SCH (17:22)
[2016-05-26] MEDS: Enoxaparin(*) 60 MG/0.6 ML SYR SUBCUT SCH (06:05)
[2016-05-26 08:49] VITALS: BP 119/51
[2016-05-26] MEDS: Atenolol TAB* 50 MG PO SCH (08:54)
[2016-05-26] MEDS: Omeprazole CAP* 20 MG PO SCH (08:54)
[2016-05-26] MEDS: Ferrous Sulfate TAB* 325 MG PO SCH (08:54)
[2016-05-26] MEDS ORDERED: Furosemide TAB* 20 MG PO SCH (09:00)
[2016-05-26] MEDS ORDERED: Diltiazem CD CAP* 180 MG PO SCH (09:00)
--- NOTE | 2016-05-27 00:59 | DS ---
DISCHARGE SUMMARY: DATE OF ADMISSION: 05/22/16 DATE OF DISCHARGE: 05/26/16 PRIMARY CARE PROVIDER: Dr. Mitchell. DISCHARGING PROVIDER: CHARLA Vides SUPERVISING PHYSICIAN: Dr. Darren Langley* (dictated by CHARLA Vides). PRIMARY DISCHARGE DIAGNOSES: 1. Acute cerebrovascular accident, likely cardioembolic in origin - all physical symptoms have resolved at the time of discharge. 2. Hypoxia - the patient requires 2 L via nasal cannula at rest and with activity. 3. Atrial fibrillation - rate controlled and anticoagulation initiated with Coumadin, bridged with Lovenox. 4. History of GI bleed. 5. Chronic heart failure, likely diastolic in origin with recently normal echocardiogram. 6. Hypertension. 7. Gastroesophageal reflux disease. DISCHARGE MEDICATIONS: 1. Atenolol 50 mg p.o. daily. 2. Diltiazem extended release 360 mg p.o. daily. 3. Lovenox 55 mg subcu twice daily. 4. Ferrous sulfate 325 mg p.o. t.i.d. 5. Lasix 20 mg p.o. daily. 6. Omeprazole 20 mg p.o. daily. 7. Pravastatin 10 mg p.o. daily. 8. Coumadin 5 mg p.o. daily. 9. Tramadol 50 mg p.o. q.6 hours as needed for shortness of breath. 10. Supplemental oxygen 2 L via nasal cannula, continuous. Medication Changes: 1. Start Lovenox. 2. Start Coumadin. 3. Supplemental oxygen. HOSPITAL IMAGIN. CT of the brain, 05/22/16, demonstrates no acute intracranial pathology. 2. Chest x-ray, 05/22/16, demonstrates some mild pulmonary interstitial edema with bilateral pleural effusions and bibasilar atelectasis. 3. MRI of the brain, 05/22/16, demonstrates no evidence of acute infarct. There are multiple areas demonstrating periventricular subcortical white matter changes, likely consistent with chronic small-vessel ischemia. 4. CTA of the brain, 05/24/16, demonstrates no acute findings. 5. Chest x-ray, 05/25/16, demonstrates hyperinflation consistent with COPD as well as small bilateral pleural effusions and improvement in prior interstitial edema. HOSPITAL COURSE: This is an 80-year-old female with a history of atrial fibrillation, who had previously been anticoagulated on Xarelto, but then taken off due to prior GI bleed, presented to the emergency department with acute onset of left-sided weakness and multiple falls at home. Initial CT showed no acute pathology and followup MRI did not show any large infarct. The patient was evaluated by a neurologist, Dr. Thakkar, who felt that her symptoms were consistent likely with a small CVA, likely cardioembolic in origin. Two days following her acute symptoms, the patient's presenting symptoms of left-sided weakness had resolved nearly completely and the patient was able to ambulate without any assistance. Neurology felt it is appropriate to initiate anticoagulation at that time. Obtained consultation from brewer helper, Dr. Camacho, who felt that it was appropriate to re-initiate anticoagulation, but did recommend an outpatient colonoscopy as well as following hemoglobin and serial Hemoccult stool testing after initiating therapy. The patient was started on Lovenox as well as Coumadin. INR was 1.34 at the time of discharge. The patient was able to give herself her own Lovenox injections and felt comfortable doing this for the next several days. Also of note, the patient was quite dyspneic with any ambulation and was severely hypoxic. At the time of discharge, she was saturating at 88% at rest and dropped to 79% while ambulating, but 2 L via nasal cannula improved her ambulatory saturations to 93% and 98% at rest. The patient had some mild pulmonary edema appreciated on initial chest x-ray as well as bilateral pleural effusions. She had an echocardiogram done towards the end of April, which was obtained from an outside hospital, which was essentially within normal limits. She had a PFO recognized and mildly elevated pulmonary arterial pressures, but a normal left ventricular ejection fraction. The patient did receive 1 dose of IV Lasix, but her oxygenation did not improve with this. Her lung exam was clear and the patient had no significant lower extremity edema. The patient remains in atrial fibrillation throughout her hospital stay, but was largely rate controlled between her beta-roberta and calcium channel roberta. DISPOSITION: The patient is being discharged to home with Lovenox and Coumadin and instruction to check both an INR and a CBC on Saturday or Saturday of this coming week, which will be in 3 to 4 days and to follow up with her primary care provider's office in regards to instructions on continuing the use of Lovenox or changing the dose of Coumadin at that time. She requires close followup with her primary care provider regarding this hospitalization for managing her anticoagulation, but also further investigation into her hypoxia. She is established with a locksmith helper out of the [facility] in [place], [place], and recommendation is to follow up with that individual. Chest x- ray here suggested possible COPD changes, but the patient has no history of smoking. We would recommend outpatient spirometry with diffusion capacity testing. The patient is being discharged on her usual home dose of Lasix without other changes. CHARLA VIDES CC: Dr. Mitchell* [id number]/[facility] #: [id number] JESSICA
== END 2016-05-26 12:30 | disposition home or self-care (01) | DRG 65 ==
LOC: ED 09:20 → MEDTELE 10:28 → OBSVTOIN 18:31
PROVIDERS: ADMIT Internal Medicine; ATTEND Internal Medicine
DX: I63.10 Cerebral infarction due to embolism of unspecified precerebral artery (principal); G81.94 Hemiplegia, unspecified affecting left nondominant side; I11.0 Hypertensive heart disease with heart failure; I50.32 Chronic diastolic (congestive) heart failure; I48.91 Unspecified atrial fibrillation; K22.70 Barrett's esophagus without dysplasia; K21.9 Gastro-esophageal reflux disease without esophagitis; E78.5 Hyperlipidemia, unspecified; R09.02 Hypoxemia; D50.9 Iron deficiency anemia, unspecified; K44.9 Diaphragmatic hernia without obstruction or gangrene; E03.9 Hypothyroidism, unspecified; M81.0 Age-related osteoporosis without current pathological fracture; Z87.891 Personal history of nicotine dependence; Z79.899 Other long term (current) drug therapy
CPT/HCPCS: 36415; 70450; 70551; 71010; 71020; 80048; 80053; 80061; 81003; 81015; 82270; 82272; 83605; 84484; 85025; 85220; 85610; 85730; 86850; 86900; 86901; 87086; 93005; 94760; A9270-GY; G8978-GP-CJ; G8979-GP-CI; G8980-GP-CJ; G8999-GN-CJ; G9186-GN-CH; J1642; J1644; J1650; J1940

== ENCOUNTER 2020-07-15 06:43 | Inpatient (IN) ==
[2020-07-15] MEDS ORDERED: methylPREDNISolone 125 mg 2 ML VIAL IV ONE (07:12)
[2020-07-15 07:18] LABS: ABS Basophils 0.1 10^3/ul (0-0.2); ABS Eosinophils 0.2 10^3/ul (0-0.6); ABS Lymphocytes 0.9 10^3/ul (1.0-4.8); ABS Monocytes 0.7 10^3/ul (0-0.8); ABS Neutrophils 6.3 10^3/ul (1.5-7.7); Eosinophil % 2.7 %; Hematocrit 41 % (35-47); Lymphocyte % 10.8 %; Mean Corpuscular HGB Conc 34 g/dL (31-36); Mean Corpuscular Hemoglobin 30 pg (27-31); Mean Corpuscular Volume 88 fL (80-97); Mean Platelet Volume 7.5 fL (7.4-10.4); Platelet Count 232 10^3/uL (150-450); Red Blood Count 4.66 10^6 /uL (3.70-4.87); Red Cell Distribution Width 15 % (10-15); White Blood Count 8.3 10^3/uL (3.5-10.8)
[2020-07-15 07:37] LABS: Albumin/Globulin Ratio 1.1 (1-3); C Reactive Protein 1.93 mg/L (<8.01); Calcium 9.9 mg/dL (8.6-10.3); EGFR Non-African American 64.4 (>60); Globulin 3.7 g/dL (2-4); Magnesium 1.9 mg/dL (1.9-2.7); Potassium 4.3 mmol/L (3.5-5.0); Total Bilirubin 0.8 mg/dL (0.2-1.0); Total Protein 7.7 g/dL (6.4-8.9)
[2020-07-15 07:43] LABS: HCG Pregnancy 3.64 mIU/mL
[2020-07-15] MEDS ORDERED: Albuterol/Ipratropium NEB.SOL (2.5/0.5 MG) 3 ML NEB.SOLN INH ONE (08:54)
[2020-07-15] MEDS ORDERED: cefTRIAXone 1 gm/50 mL NS BAG 1 GM/50 ML BAG IVPB ONE (08:56)
[2020-07-15] MEDS ORDERED: Furosemide 40 mg/4 ml IV VIAL IV ONE (10:39)
[2020-07-15 11:13] LABS: Urine Appearance Cloudy; Urine Bilirubin Negative (Negative); Urine Blood Negative (Negative); Urine Color Yellow; Urine Glucose Negative (Negative); Urine Ketones Negative (Negative); Urine Nitrite Negative (Negative); Urine Protein Negative (Negative); Urine Specific Gravity 1.015 (1.002-1.030); Urine Urobilinogen Negative (Negative)
[2020-07-15 11:29] LABS: Urine Bacteria Absent (Absent); Urine Red Blood Cell 3+(>10/hpf) (Absent); Urine Squamous Epithelial Cell Present (Absent); Urine White Blood Cell Trace(0-5/hpf) (Absent)
[2020-07-15] MEDS: Albuterol HFA INHALER 8 gm MDI INH SCH (17:03)
[2020-07-15] MEDS: Pravastatin 20 mg TAB (NF) PO SCH (20:27)
[2020-07-16] MEDS: Albuterol HFA INHALER 8 gm MDI INH SCH ×4 (07:14→22:06)
[2020-07-16] MEDS: SPIRIVA Respimat (tiotropium) 2.5 mcg/inh Inhaler INH SCH (07:51)
[2020-07-16 13:01] LABS: Calcium 9.5 mg/dL (8.6-10.3); EGFR African American 87.5 (>60); EGFR Non-African American 72.3 (>60); Potassium 4.6 mmol/L (3.5-5.0)
[2020-07-16] MEDS ORDERED: Iohexol 350 (CONTRAST) 500 ML MDV IV ONE (14:47)
[2020-07-16] MEDS: Pravastatin 20 mg TAB (NF) PO SCH (20:44)
[2020-07-16] MEDS ORDERED: Albuterol HFA INHALER 8 gm MDI INH PRN (21:50)
[2020-07-17 06:32] LABS: ABS Lymphocytes 0.8 10^3/ul (1.0-4.8); ABS Monocytes 1.1 10^3/ul (0-0.8); ABS Neutrophils 12.9 10^3/ul (1.5-7.7); Hematocrit 36 % (35-47); Hemoglobin 12.1 g/dL (12.0-16.0); Lymphocyte % 5.4 %; Mean Corpuscular HGB Conc 34 g/dL (31-36); Mean Corpuscular Hemoglobin 30 pg (27-31); Mean Corpuscular Volume 89 fL (80-97); Nucleated Red Blood Cells % 0.1; Platelet Count 221 10^3/uL (150-450); Red Blood Count 4.02 10^6 /uL (3.70-4.87); Red Cell Distribution Width 15 % (10-15); White Blood Count 14.8 10^3/uL (3.5-10.8)
[2020-07-17 06:51] LABS: Calcium 9.3 mg/dL (8.6-10.3); EGFR African American 88.9 (>60); EGFR Non-African American 73.4 (>60); Potassium 4.4 mmol/L (3.5-5.0)
[2020-07-17] MEDS: SPIRIVA Respimat (tiotropium) 2.5 mcg/inh Inhaler INH SCH (07:46)
[2020-07-17] MEDS: Furosemide 40 mg/4 ml IV VIAL IV SLOW PU SCH ×2 (11:45→17:33)
[2020-07-17] MEDS: Pravastatin 20 mg TAB (NF) PO SCH (20:54)
[2020-07-18 05:55] LABS: ABS Lymphocytes 1.1 10^3/ul (1.0-4.8); ABS Neutrophils 8.9 10^3/ul (1.5-7.7); Eosinophil % 0.3 %; Hematocrit 36 % (35-47); Hemoglobin 12.1 g/dL (12.0-16.0); Lymphocyte % 9.8 %; Mean Corpuscular HGB Conc 33 g/dL (31-36); Mean Corpuscular Hemoglobin 30 pg (27-31); Mean Corpuscular Volume 89 fL (80-97); Mean Platelet Volume 7.6 fL (7.4-10.4); Platelet Count 206 10^3/uL (150-450); Red Blood Count 4.05 10^6 /uL (3.70-4.87); Red Cell Distribution Width 15 % (10-15); White Blood Count 11.1 10^3/uL (3.5-10.8)
[2020-07-18 06:10] LABS: Calcium 8.8 mg/dL (8.6-10.3); EGFR Non-African American 64.4 (>60); Magnesium 1.9 mg/dL (1.9-2.7); Potassium 4.1 mmol/L (3.5-5.0)
[2020-07-18] MEDS: SPIRIVA Respimat (tiotropium) 2.5 mcg/inh Inhaler INH SCH (07:28)
[2020-07-18] MEDS: Furosemide 40 mg/4 ml IV VIAL IV SLOW PU SCH ×2 (08:10→17:06)
[2020-07-18] MEDS: Pravastatin 20 mg TAB (NF) PO SCH (21:49)
[2020-07-19 07:09] LABS: Calcium 8.8 mg/dL (8.6-10.3); EGFR African American 90.3 (>60); EGFR Non-African American 74.6 (>60); Magnesium 1.9 mg/dL (1.9-2.7); Potassium 3.8 mmol/L (3.5-5.0)
[2020-07-19] MEDS: SPIRIVA Respimat (tiotropium) 2.5 mcg/inh Inhaler INH SCH (08:03)
[2020-07-19] MEDS: Furosemide 40 mg/4 ml IV VIAL IV SLOW PU SCH (08:04)
[2020-07-19 09:05] VITALS: BP 125/60
[2020-07-19] MEDS ORDERED: Mometasone/Formoter 200/5 MDI INH SCH (10:00)
== END 2020-07-19 11:06 | disposition home or self-care (01) ==
LOC: ED 06:43 → MED 10:39
PROVIDERS: ADMIT Hospitalist; ATTEND Internal Medicine

== ENCOUNTER 2021-03-02 07:41 | Inpatient (IN) ==
[2021-03-02] MEDS ORDERED: cefTRIAXone 1 gm/50 mL NS BAG 1 GM/50 ML BAG IV ONE (08:05)
[2021-03-02] MEDS ORDERED: Azithromycin 500 mg/250 ml NS 500 MG/250 ML BAG IVPB ONE (08:05)
[2021-03-02 08:14] LABS: ABS Eosinophils 0.2 10^3/ul (0-0.6); ABS Lymphocytes 0.9 10^3/ul (1.0-4.8); ABS Monocytes 0.7 10^3/ul (0-0.8); ABS Neutrophils 8.6 10^3/ul (1.5-7.7); Hematocrit 39 % (35-47); Hemoglobin 12.9 g/dL (12.0-16.0); Lymphocyte % 8.7 %; Mean Corpuscular HGB Conc 33 g/dL (31-36); Mean Corpuscular Hemoglobin 30 pg (27-31); Mean Corpuscular Volume 90 fL (80-97); Mean Platelet Volume 7.8 fL (7.4-10.4); Platelet Count 275 10^3/uL (150-450); Red Blood Count 4.33 10^6 /uL (3.70-4.87); Red Cell Distribution Width 15 % (10-15); White Blood Count 10.5 10^3/uL (3.5-10.8)
[2021-03-02 08:34] LABS: Troponin I 0.01 ng/mL (<0.03)
[2021-03-02 08:35] LABS: Albumin 3.7 g/dL (3.2-5.2); Calcium 9.5 mg/dL (8.6-10.3); Globulin 3.8 g/dL (2-4); Potassium 4.3 mmol/L (3.5-5.0); Total Bilirubin 0.7 mg/dL (0.2-1.0); Total Protein 7.5 g/dL (6.4-8.9); eGFR CKD-EPI 61.4 (>60)
[2021-03-02] MEDS ORDERED: Furosemide 40 mg/4 ml IV VIAL IV SLOW PU ONE (08:37)
[2021-03-02] MEDS ORDERED: Albuterol HFA INHALER 8 gm MDI INH PRN (09:00)
[2021-03-02] MEDS: Tiotropium Brom/Olodaterol MDI INH SCH (10:08)
[2021-03-02 10:43] LABS: Magnesium 1.9 mg/dL (1.9-2.7)
[2021-03-02] MEDS: CMC: Pravastatin 20 mg TAB (NF) PO SCH (21:18)
[2021-03-03 06:09] LABS: ABS Basophils 0.1 10^3/ul (0-0.2); ABS Eosinophils 0.3 10^3/ul (0-0.6); ABS Lymphocytes 0.8 10^3/ul (1.0-4.8); ABS Neutrophils 7.2 10^3/ul (1.5-7.7); Eosinophil % 2.9 %; Hematocrit 35 % (35-47); Lymphocyte % 9.1 %; Mean Corpuscular HGB Conc 35 g/dL (31-36); Mean Corpuscular Hemoglobin 31 pg (27-31); Mean Corpuscular Volume 89 fL (80-97); Mean Platelet Volume 7.5 fL (7.4-10.4); Platelet Count 236 10^3/uL (150-450); Red Blood Count 3.93 10^6 /uL (3.70-4.87); Red Cell Distribution Width 14 % (10-15); White Blood Count 9.3 10^3/uL (3.5-10.8)
[2021-03-03 06:27] LABS: Calcium 8.9 mg/dL (8.6-10.3); Magnesium 1.7 mg/dL (1.9-2.7); Potassium 3.8 mmol/L (3.5-5.0); eGFR CKD-EPI 66.7 (>60)
[2021-03-03] MEDS: Tiotropium Brom/Olodaterol MDI INH SCH (07:35)
[2021-03-03] MEDS ORDERED: Magnesium Sulfate 2 gm BAG 2 GM/50 ML BAG IVPB ONE (08:20)
[2021-03-03 09:11] LABS: INR 1.4 (0.86-1.15)
[2021-03-03 16:01] LABS: Body Fluid Appearance Cloudy; Body Fluid Color Amber; Body Fluid Source Pleural Fluid
[2021-03-03 16:12] LABS: Body Fluid WBC 296 /mcL
[2021-03-03 19:16] LABS: Body Fluid Mono 28 %; Body Fluid Total Cells Counted 200
[2021-03-03] MEDS: CMC: Pravastatin 20 mg TAB (NF) PO SCH (21:24)
[2021-03-04 07:02] LABS: ABS Basophils 0.1 10^3/ul (0-0.2); ABS Eosinophils 0.2 10^3/ul (0-0.6); ABS Lymphocytes 0.9 10^3/ul (1.0-4.8); ABS Monocytes 0.9 10^3/ul (0-0.8); ABS Neutrophils 6.3 10^3/ul (1.5-7.7); Eosinophil % 2.9 %; Hematocrit 35 % (35-47); Hemoglobin 11.8 g/dL (12.0-16.0); Lymphocyte % 11.1 %; Mean Corpuscular HGB Conc 34 g/dL (31-36); Mean Corpuscular Hemoglobin 30 pg (27-31); Mean Corpuscular Volume 90 fL (80-97); Platelet Count 234 10^3/uL (150-450); Red Blood Count 3.88 10^6 /uL (3.70-4.87); Red Cell Distribution Width 14 % (10-15); White Blood Count 8.4 10^3/uL (3.5-10.8)
[2021-03-04 07:21] LABS: Calcium 8.8 mg/dL (8.6-10.3); Magnesium 1.8 mg/dL (1.9-2.7); Potassium 3.9 mmol/L (3.5-5.0); eGFR CKD-EPI 67.6 (>60)
[2021-03-04] MEDS: Tiotropium Brom/Olodaterol MDI INH SCH (07:57)
[2021-03-04 14:39] LABS: Glucose, BF 112 mg/dL
[2021-03-04 14:42] LABS: Albumin, BF 1.6 g/dL; Fluid Type, Albumin PLEURAL
[2021-03-04 14:43] LABS: Fluid Type, Protein, Total PLEURAL; Total Protein, BF 3.1 g/dL
[2021-03-04] MEDS: CMC: Pravastatin 20 mg TAB (NF) PO SCH (20:22)
[2021-03-05 07:19] LABS: ABS Eosinophils 0.2 10^3/ul (0-0.6); ABS Monocytes 0.8 10^3/ul (0-0.8); ABS Neutrophils 5.8 10^3/ul (1.5-7.7); Eosinophil % 2.9 %; Hematocrit 35 % (35-47); Hemoglobin 11.9 g/dL (12.0-16.0); Lymphocyte % 12.4 %; Mean Corpuscular HGB Conc 34 g/dL (31-36); Mean Corpuscular Hemoglobin 30 pg (27-31); Mean Corpuscular Volume 89 fL (80-97); Mean Platelet Volume 7.6 fL (7.4-10.4); Platelet Count 242 10^3/uL (150-450); Red Blood Count 3.92 10^6 /uL (3.70-4.87); Red Cell Distribution Width 14 % (10-15); White Blood Count 7.8 10^3/uL (3.5-10.8)
[2021-03-05 07:36] LABS: Calcium 8.7 mg/dL (8.6-10.3); Magnesium 1.8 mg/dL (1.9-2.7); eGFR CKD-EPI 72.8 (>60)
[2021-03-05 08:37] VITALS: BP 120/62
[2021-03-05] MEDS ORDERED: Magnesium Sulfate 2 gm BAG 2 GM/50 ML BAG IVPB ONE (09:26)
[2021-03-05] MEDS: Tiotropium Brom/Olodaterol MDI INH SCH (09:29)
[2021-03-05] MEDS ORDERED: Magnesium Sulfate 2 gm BAG 2 GM/50 ML BAG ONE (09:31)
[2021-03-06 11:30] LABS: Lactate Dehydrogenase, BF 73 U/L
== END 2021-03-05 15:00 | disposition home or self-care (01) | DRG 186 ==
LOC: ED 07:41 → EDHOLD 09:03 → SUATTDRO 09:03 → MEDTELE 09:54
PROVIDERS: ADMIT Internal Medicine; ATTEND Internal Medicine